=== PATIENT | male | born 1990 | race Caucasian/White ===

== ENCOUNTER 2018-12-15 20:17 | Outpatient (CLI) | payer OTHER | END 2018-12-15 20:18 | disposition home or self-care (01) | LOC: SC 20:17 | PROVIDERS: ATTEND Internal Medicine Pulmonary Disease | DX: G47.61 Periodic limb movement disorder (principal) | CPT/HCPCS: 95810 ==

== ENCOUNTER 2018-12-22 10:09 | Outpatient (CLI) | payer OTHER ==
--- NOTE | 2018-12-22 12:56 | SLEEP CARE CONSULTATION ---
Information from patient questionnaire entered by Jina Avitia. I have reviewed and concur with the information entered by Jina Avitia. This document represents the service I personally performed and the decisions made by me, Polo Wong MD, [facility]. History of Present Illness Initial [place] Sleepiness Scale score: 18 Current [place] Sleepiness Scale score: 19 Additional HPI information: HPI: Mr. Chávez returned for follow up of the sleep study he had on 12/15/2018. The polysomnography showed that the patient had slightly reduced sleep efficiency due to a prolonged awakening in the middle of the night. The sleep architecture was normal. Respiratory monitoring showed no significant sleep disordered breathing (AHI = 1.5) or hypoxia (adonay oxygen saturation of 91%). The patient only slept supine (supine AHI = 1.5; non-supine = 0.00). Snore was light to loud in intensity. There was no periodic leg movement of sleep. Cardiac rhythm was normal sinus rhythm without significant arrhythmia. No abnormal behavior (parasomnia) observed during the night. The patient was informed of these findings. I explained to him that the sleep study was normal. Allergies and Home Medications Drug allergies reviewed: Yes Home medication list reviewed: Yes Review of Systems Review of systems same as previous: Yes Impression and Plan IMPRESSION: 1. Primary Snore (ICD-10 R06.83), light to loud, but no significant sleep disordered breathing. Therefore, sleep-disordered breathing is not a cause of his complaint of daytime sleepiness. No other sleep-disordered breathing can be identified either during the sleep study. PLAN: 1. No treatment recommended. 2. Follow up with primary care provider. 4. Return to the sleep clinic on as needed basis. I spent 100% of the 15 minute visit [id number] with the patient with greater than 50% of this was spent time counseling the patient and coordination of care.
== END 2018-12-22 10:10 | disposition home or self-care (01) ==
LOC: SC 10:09
PROVIDERS: ATTEND Internal Medicine Pulmonary Disease
DX: R06.83 Snoring (principal)
CPT/HCPCS: 99212; 99213

== ENCOUNTER 2021-12-22 08:56 | Outpatient (CLI) | payer OTHER ==
[2021-12-22 13:01] LABS: BASOPHILS % (AUTO) 0.8 %; EOSINOPHILS # (AUTO) 0.1 10^3/uL (0.0-0.7); EOSINOPHILS % (AUTO) 2.3 %; HCT - HEMATOCRIT 44.5 % (42.0-52.0); HGB - HEMOGLOBIN 14.8 g/dL (14.0-18.0); LYMPHOCYTES # (AUTO) 1.5 10^3/uL (1.5-3.5); LYMPHOCYTES % (AUTO) 31.9 %; MEAN CORPUSCULAR HEMOGLOBIN 28.4 pg (27.0-31.0); MEAN CORPUSCULAR HGB CONC 33.3 g/dL (32.0-36.0); MEAN CORPUSCULAR VOLUME 85.4 fL (80.0-94.0); MEAN PLATELET VOLUME 10.1 fL (7.4-11.4); MONOCYTES # (AUTO) 0.3 10^3/uL (0.0-1.0); MONOCYTES % (AUTO) 6.2 %; NEUTROPHILS # (AUTO) 2.8 10^3/uL (1.5-6.6); NEUTROPHILS % (AUTO) 57.4 %; PLT - PLATELET COUNT 294 10^3/uL (130-450); RED BLOOD COUNT 5.21 10^6/uL (4.70-6.10); RED CELL DISTRIBUTION WIDTH 12.3 % (12.0-15.0); WHITE BLOOD COUNT 4.8 x10^3/uL (4.8-10.8)
[2021-12-22 13:13] LABS: BILIRUBIN,URINE NEGATIVE (NEGATIVE); GLUCOSE, URINE (UA) NEGATIVE (NEGATIVE); KETONES,URINE (UA) NEGATIVE (NEGATIVE); LEUKOCYTE ESTERASE, URINE NEGATIVE (NEGATIVE); NITRITE,URINE NEGATIVE (NEGATIVE); OCCULT BLOOD,URINE NEGATIVE (NEGATIVE); PROTEIN,URINE NEGATIVE (NEGATIVE); UROBILINOGEN,URINE 0.2 (NORMAL) E.U./dL (NORMAL)
[2021-12-22 13:17] LABS: CLARITY,URINE CLEAR (CLEAR)
[2021-12-22 13:25] LABS: WBC,URINE 0-3 /HPF (0-3)
[2021-12-22 13:26] LABS: BACTERIA,URINE Rare /HPF (None Seen); RBC,URINE None Seen /HPF (0-5); SQUAMOUS EPITHELIAL CELL,UR RARE Squamous (<= Few)
[2021-12-22 13:29] LABS: ALBUMIN 5.1 g/dL (3.2-5.5); ALBUMIN/GLOBULIN RATIO 1.5 (1.0-2.2); ALKALINE PHOSPHATASE 64 IU/L (42-121); ALT ALANINE AMINOTRANSFERASE 47 IU/L (10-60); AST ASPARTATE AMINOTRANSFERASE 27 IU/L (10-42); BILIRUBIN,TOTAL 0.6 mg/dL (0.2-1.0); BUN - BLOOD UREA NITROGEN 15 mg/dL (6-20); CALCIUM 10.2 mg/dL (8.5-10.3); CARBON DIOXIDE - CO2 25 mmol/L (21-32); CHLORIDE 106 mmol/L (101-111); CHOL/HDL RATIO 9.2 (<5.0); CHOLESTEROL 238 mg/dL; CREATININE 0.9 mg/dL (0.6-1.2); GFR - MDRD 98 (>89); GLUCOSE 123 mg/dL (70-100); HDL CHOLESTEROL 26 mg/dL; LDL CHOLESTEROL,CALCULATED 144 mg/dL; LDL/HDL RATIO 5.5 (<3.6); POTASSIUM 4.2 mmol/L (3.5-5.0); SODIUM 140 mmol/L (135-145); TOTAL PROTEIN 8.4 g/dL (6.7-8.2); TRIGLYCERIDES 340 mg/dL; VLDL CHOLESTEROL 68 mg/dL
[2021-12-22 13:31] LABS: THYROID STIMULATING HORMONE 0.61 uIU/mL (0.34-5.60)
== END 2021-12-22 08:57 | disposition home or self-care (01) ==
LOC: LAB.N 08:56
PROVIDERS: ATTEND Physician Assistant
DX: R00.2 Palpitations (principal); Z13.220 Encounter for screening for lipoid disorders; Z13.9 Encounter for screening, unspecified
CPT/HCPCS: 36415; 80053; 80061; 81001; 83721; 84443; 85025; 87086

== ENCOUNTER 2022-01-12 09:11 | Outpatient (CLI) | payer OTHER ==
[2022-01-12 12:57] LABS: ESTIMATED AVERAGE GLUCOSE 97 mg/dL (70-100)
[2022-01-12 13:15] LABS: BUN - BLOOD UREA NITROGEN 13 mg/dL (6-20); CALCIUM 9.8 mg/dL (8.5-10.3); CARBON DIOXIDE - CO2 26 mmol/L (21-32); CHLORIDE 105 mmol/L (101-111); CHOL/HDL RATIO 7.8 (<5.0); CHOLESTEROL 248 mg/dL; GFR - MDRD 87 (>89); GLUCOSE 112 mg/dL (70-100); HDL CHOLESTEROL 32 mg/dL; LDL CHOLESTEROL,CALCULATED 138 mg/dL; LDL/HDL RATIO 4.3 (<3.6); POTASSIUM 4.3 mmol/L (3.5-5.0); SODIUM 139 mmol/L (135-145); TRIGLYCERIDES 390 mg/dL; VLDL CHOLESTEROL 78 mg/dL
== END 2022-01-12 09:12 | disposition home or self-care (01) ==
LOC: LAB.N 09:11
PROVIDERS: ATTEND Physician Assistant
DX: E78.1 Pure hyperglyceridemia (principal); E78.5 Hyperlipidemia, unspecified; R73.01 Impaired fasting glucose
CPT/HCPCS: 36415; 80048; 80061; 83036; 83721